=== PATIENT | male | born 1955 | race Caucasian/White ===

== ENCOUNTER → 2017-07-05 | Outpatient (CLI) | payer OTHER ==
--- NOTE | 2017-07-05 14:16 | CARD ---
APPROVED REPORT Reason : Abnormal EKG PROCEDURE The patient underwent an Exercise Stress Test using the Harish Protocol. Blood pressure, heart rate, a nd EKG were monitored. An Echocardiogram was performed by instructional support technician in four stages in quad fashion. At peak stress four se lected images were obtained and placed side by side with resting images for comparison. STRESS ECHO FINDINGS The resting Echocardiogram showed normal left ventricular contractility with an estimated Ejection Fr action of about 60 %. Normal augmentation of myocardial wall segments using a 16 segment model. Test Type: Exercise Stress Nurse/Tech: Kanika Velazquez R.N. Test Indications: dyspnea Cardiac History and Allergies: See [employer] EMR NKDA Medications: see ehr Medical History: see ehr Resting ECG: SR Resting Heart Rate: 67 bpm Resting Blood Pressure: 128/74mmHg Pretest Chest Pain: No chest pain Nurse/Tech Notes S1S2, lungs CTA Stress Symptoms dyspnea, fatigue POST EXERCISE Reason for Termination: Reached target heart rate Target HR: Yes Max HR: 149 bpm 93% of Maximum Predicted HR: 160 bpm Exercise duration: 8.00 min:sec, 3 Stage Exercise capacity: 10.1METs Max Blood Pressure: 173/75mmHg Blood Pressure response to exercise: Normal blood pressure response during stress. Heart Rate response to exercise: wnl Chest Pain: No. Arrhythmia: No. ST Change: Yes. some variable depressions in leads II,III,AVF,V6. Slight elevation in lead AVR STRESS ECG Stress EKG shows no significant changes. <Conclusion> The left ventricle is normal in size, wall thickness and function in both the rest and stress images. EF > 60% Good exercise capacity at 10.1 Mets No EKG abnormalities noted.
== END | disposition home or self-care (01) ==
LOC: ECHO 12:35
DX: R94.31 Abnormal electrocardiogram [ECG] [EKG] (principal); R53.83 Other fatigue; R06.00 Dyspnea, unspecified
CPT/HCPCS: 93017; 93350